=== PATIENT | female | born 1975 | race Caucasian/White ===

== ENCOUNTER 2017-06-14 21:09 | Emergency (ER) | payer SELFPAY ==
[~2017-06-14] VITALS: Ht 157.5 cm; Wt 69.4 kg
[2017-06-15 00:04] VITALS: BP 123/85
== END 2017-06-15 00:04 | disposition home or self-care (01) ==
LOC: ED 21:09
DX: S39.012A Strain of muscle, fascia and tendon of lower back, initial encounter (principal); W18.39XA Other fall on same level, initial encounter; Y93.89 Activity, other specified; Y99.8 Other external cause status; Y92.511 Restaurant or cafe as the place of occurrence of the external cause
CPT/HCPCS: J1885

== ENCOUNTER 2018-09-05 17:32 | Inpatient (IN) | payer MEDICAID ==
[~2018-09-05] VITALS: Ht 157.5 cm; Wt 76.8 kg
[2018-09-05 17:35] VITALS: Ht 157.5 cm; Wt 76.8 kg
[2018-09-05 18:39] LABS: BASOPHIL % 0.5 % (0-2)
[2018-09-05 18:40] LABS: PLATELET COUNT 447 x10^3mcL (130-400)
[2018-09-05] MEDS ORDERED: NATURAL IRON65 MG (18:44)
[2018-09-05 18:47] LABS: CALCIUM 7.6 mg/dL (8.5-10.1); CARBON DIOXIDE 28.3 mmol/L (21-32); CHLORIDE SERUM 108 mmol/L (98-107); CREATININE SERUM 0.7 mg/dL (0.6-1.0); GFR1 > 60 mL/min; GLUCOSE SERUM 86 mg/dL (74-106); POTASSIUM SERUM 3.3 mmol/L (3.5-5.1); SODIUM SERUM 141 mmol/L (136-145)
[2018-09-05 18:48] LABS: rbc morphology (normal/abnorm) ABNORMAL (NORMAL)
[2018-09-05 18:52] LABS: ALKALINE PHOSPHATASE 61 U/L (46-116); ALT/SGPT 29 U/L (14-59); AST/SGOT 24 U/L (15-37); BILIRUBIN TOTAL 0.39 mg/dL (0.20-1.00); TOTAL PROTEIN, SERUM 6.9 g/dL (6.4-8.2)
[2018-09-05 18:56] LABS: ALBUMIN 3.1 g/dL (3.4-5.0)
[2018-09-05 20:28] LABS: UA SPECIFIC GRAVITY 1.025 (1.005-1.035); microscopic required? YES; urine erythrocyte 2+ (NEGATIVE)
[2018-09-05 20:38] LABS: AMPHETAMINE QUAL UR NONE DETECTED (See below)
[2018-09-05 20:43] LABS: CHOLESTEROL/HDL RATIO 2.7; PHOSPHOROUS 3.6 mg/dL (2.5-4.9)
[2018-09-05 20:49] LABS: RED BLOOD CELLS 3.61 M/mm3 (4.10-5.10)
[2018-09-05 20:52] LABS: T3 TOTAL 1.11 ng/mL
[2018-09-05 20:55] VITALS: BP 111/49
[2018-09-05 20:56] LABS: TOTAL IRON BINDING CAPACITY 383 ug/dL (250-450)
[2018-09-05 21:00] LABS: IRON 8 ug/dL (50-170)
[2018-09-05 21:36] LABS: FREE T4 0.94 ng/dL (0.76-1.46); FREE THYROXINE INDEX 2.2 ug/dL (1.4-4.5); T4(THYROXINE) 6.4 ug/dL (4.7-13.3)
[2018-09-06] VITALS (10 sets, daily range): BP systolic 92–123; BP diastolic 46–72
[2018-09-06 06:08] LABS: CALCIUM 7.3 mg/dL (8.5-10.1); CHLORIDE SERUM 112 mmol/L (98-107); CREATININE SERUM 0.5 mg/dL (0.6-1.0); GFR1 > 60 mL/min; GLUCOSE SERUM 101 mg/dL (74-106); POTASSIUM SERUM 4.1 mmol/L (3.5-5.1); SODIUM SERUM 144 mmol/L (136-145)
[2018-09-06 06:52] LABS: BASOPHIL % 0.7 % (0-2)
[2018-09-06 07:06] LABS: PLATELET COUNT 415 x10^3mcL (130-400); RED CELL DISTRIBUTION WIDTH 24.3 % (11.5-14.5)
[2018-09-06 08:06] LABS: rbc morphology (normal/abnorm) ABNORMAL (NORMAL)
[2018-09-06 16:27] LABS: BASOPHIL % 0.6 % (0-2)
[2018-09-06 16:28] LABS: PLATELET COUNT 421 x10^3mcL (130-400); RED CELL DISTRIBUTION WIDTH 24.6 % (11.5-14.5)
[2018-09-06 16:30] LABS: rbc morphology (normal/abnorm) ABNORMAL (NORMAL)
[2018-09-06 16:32] LABS: ovalocyte/elliptocyte 1+; target cell (codocyte) 1+
[2018-09-07 05:57] VITALS: BP 105/60
[2018-09-07 06:02] LABS: BASOPHIL % 1.1 % (0-2)
[2018-09-07 06:50] LABS: PLATELET COUNT 428 x10^3mcL (130-400); RED CELL DISTRIBUTION WIDTH 26.9 % (11.5-14.5)
[2018-09-07 06:58] LABS: CALCIUM 8.1 mg/dL (8.5-10.1); CARBON DIOXIDE 28.1 mmol/L (21-32); CHLORIDE SERUM 105 mmol/L (98-107); CREATININE SERUM 0.6 mg/dL (0.6-1.0); GFR1 > 60 mL/min; GLUCOSE SERUM 90 mg/dL (74-106); MAGNESIUM 2.2 mg/dL (1.8-2.4); PHOSPHOROUS 3.8 mg/dL (2.5-4.9); POTASSIUM SERUM 3.8 mmol/L (3.5-5.1); SODIUM SERUM 139 mmol/L (136-145)
[2018-09-07 08:45] VITALS: BP 102/68
[2018-09-07 12:10] VITALS: BP 124/61
[2018-09-07 13:05] LABS: rbc morphology (normal/abnorm) ABNORMAL (NORMAL)
[2018-09-07 13:06] LABS: ovalocyte/elliptocyte 2+
[2018-09-07 17:20] VITALS: BP 114/56
[2018-09-07 21:06] VITALS: BP 116/62
[2018-09-08 05:48] VITALS: BP 125/74
[2018-09-08 06:13] LABS: CALCIUM 8.1 mg/dL (8.5-10.1); CARBON DIOXIDE 28.1 mmol/L (21-32); CHLORIDE SERUM 109 mmol/L (98-107); CREATININE SERUM 0.6 mg/dL (0.6-1.0); GFR1 > 60 mL/min; GLUCOSE SERUM 100 mg/dL (74-106); POTASSIUM SERUM 3.8 mmol/L (3.5-5.1); SODIUM SERUM 144 mmol/L (136-145)
[2018-09-08 06:45] LABS: BASOPHIL % 0.3 % (0-2)
[2018-09-08 06:54] LABS: PLATELET COUNT 455 x10^3mcL (130-400); RED CELL DISTRIBUTION WIDTH 25.4 % (11.5-14.5)
[2018-09-08 09:48] LABS: ovalocyte/elliptocyte 1+
[2018-09-08 09:49] LABS: rbc morphology (normal/abnorm) ABNORMAL (NORMAL)
[2018-09-08 10:00] VITALS: BP 116/60
[2018-09-08 12:18] VITALS: BP 116/60
[2018-09-08 14:24] VITALS: BP 119/71
== END 2018-09-08 15:06 | disposition home or self-care (01) | DRG 517 ==
LOC: ED 17:32 → DU 19:55
PROVIDERS: Emergency Medicine; Family Medicine; Internal Medicine
PROC: 30233N1 Transfusion of Nonautologous Red Blood Cells into Peripheral Vein, Percutaneous Approach (ICD-10-PCS; principal; 2018-09-05)
PROC: 0UDB7ZZ Extraction of Endometrium, Via Natural or Artificial Opening (ICD-10-PCS; 2018-09-07)
DX: N92.0 Excessive and frequent menstruation with regular cycle (principal); N17.0 Acute kidney failure with tubular necrosis; D50.0 Iron deficiency anemia secondary to blood loss (chronic); D25.0 Submucous leiomyoma of uterus; I36.1 Nonrheumatic tricuspid (valve) insufficiency; D47.3 Essential (hemorrhagic) thrombocythemia; R90.82 White matter disease, unspecified; E87.6 Hypokalemia; E44.0 Moderate protein-calorie malnutrition; Z68.31 Body mass index [BMI] 31.0-31.9, adult
CPT/HCPCS: 83880; 84439; J2405; J2704; J2916; J3010; J7030; J7050; J7120; P9016; Q0092; Q0163

== ENCOUNTER 2020-12-13 16:39 | Emergency (ER) | payer MEDICAID ==
[~2020-12-13] VITALS: Ht 157.5 cm; Wt 74.8 kg
[~2020-12-13 16:39] MED LIST: COL100 PO; NATURAL IRON65 MG; OSCD PO; PROV5 PO
[2020-12-13 16:47] VITALS: Ht 157.5 cm; Wt 74.8 kg
[2020-12-13 17:45] LABS: BASOPHIL % 1.1 % (0.2-1.3)
[2020-12-13 17:46] LABS: CALCIUM 8.3 mg/dL (8.5-10.1); CARBON DIOXIDE 18.4 mmol/L (21-32); CHLORIDE SERUM 105 mmol/L (98-107); CREATININE SERUM 0.8 mg/dL (0.6-1.0); GFR1 > 60 mL/min; GLUCOSE SERUM 83 mg/dL (74-106); POTASSIUM SERUM 3.7 mmol/L (3.5-5.1); SODIUM SERUM 137 mmol/L (136-145)
[2020-12-13 17:47] LABS: PLATELET COUNT 407 x10^3mcL (179-408); RED CELL DISTRIBUTION WIDTH 19.4 % (12.3-17.7)
[2020-12-13 17:50] LABS: ALBUMIN 3.6 g/dL (3.4-5.0); ALKALINE PHOSPHATASE 57 U/L (46-116); ALT/SGPT 24 U/L (14-59); AST/SGOT 14 U/L (15-37); BILIRUBIN TOTAL 0.2 mg/dL (0.20-1.00); TOTAL PROTEIN, SERUM 6.8 g/dL (6.4-8.2)
[2020-12-13 19:02] LABS: rbc morphology (normal/abnorm) ABNORMAL (NORMAL)
[2020-12-14 00:30] VITALS: BP 133/64
== END 2020-12-14 00:30 | disposition home or self-care (01) ==
LOC: ED 16:39
PROVIDERS: Emergency Medicine
DX: D64.89 Other specified anemias (principal); R42 Dizziness and giddiness; Z87.42 Personal history of other diseases of the female genital tract; Z86.2 Personal history of diseases of the blood and blood-forming organs and certain disorders involving the immune mechanism
CPT/HCPCS: J7050; P9016